=== PATIENT | male | born 1945 | race Caucasian/White ===

== ENCOUNTER → 2017-07-17 | Outpatient (CLI) | payer OTHER ==
[~2017-07-17] MED LIST: ASPIRIN81 M1 PO; BUSPIRONE HCL7.5 MG PO; CECLOR500 MG PO; CELEXA20 MG PO; CLEOCIN PO; COMBIVENT RESPIM4 GM INH; DAKIN'S3840 ML TOP; DARVOCET-N 1001 TAB PO; FLOMAX0.4 M1 PO; HYDROGESIC 5/501 CAP; LIPITOR PO; LOTENSIN20 MG PO; LOTREL 10/20 MG1 CAP PO; LOTREL 5/20 MG1 CAP PO; MULTI-DAY VITAM1 TAB PO; NORCO 10-325 TA1 TAB PO; PANTOPRAZOLE SO40 MG PO; PREDNISONE; PREDNISONE5 M1 DOB; PRILOSEC20 M1 PO; SKELAXIN PO; SLO-NIACIN500 MG PO; SYMBICORT INH; TESTONE CI200 MG/1 M IM; TOPROL XL PO; TOPROL XL50 MG PO; TRAZODONE PO; VICODIN 5/500 T1 TAB PO; VOLTAREN75 MG PO; WELLBUTRIN SR PO; ZITHROMAX1 G/PKT PO; ZOCOR PO
--- NOTE | ~2017-07-17 | US85 ---
[facility] A Service of [facility] & [facility] RADIOLOGY TEXT RESULTS PATIENT: RAFAELA JACOBS LOCATION: CNIV : 49 UNIT #: [id number] AGE: [address]: Cande Nguyen APRN SEX: M ORDER DR: [id number] [facility] [address] [place], [place] [address] [id number] O MR#: [id number] Acc #: [id number] NAME: RAFAELA JACOBS : 1945 SEX: M STUDY DATE/TIME: 07/17/2017 15:11 UNIT: CNIV ROOM: STUDY DESCRIPTION: [facility] Attending Physician: Cande Nguyen A.P.R.N. Referring Physician: Cande Nguyen A.P.R.N. Ordering Physician: Cande Nguyen A.P.R.N. Primary Care Physician: Joshua Rolle M.D. MEDICAL IMAGING REPORT This report is preliminary unless electronic signature is present EXAM Left lower extremity venous duplex, 07/17/2017 HISTORY Left lower extremity pain and edema, and redness in left calf beginning this morning, evaluate for deep vein thrombosis. TECHNIQUE Venous ultrasound examination of the left lower extremity was performed using grayscale, spectral Doppler and color flow Doppler imaging. FINDINGS The examination is negative. There is no evidence of left lower extremity deep venous thrombus from the groin to the lower calf. Visualized greater saphenous vein is also patent. IMPRESSION Negative examination. No evidence of left lower extremity deep venous thrombosis. Dictated by... Zach Brown M.D. THIS IS AN ELECTRONICALLY VERIFIED REPORT Zach Brown M.D. at 07/20/2017 7:34 AM PAIGE/renetta TD: 07/18/2017 12:28 JOB #: [id number] MEDICAL IMAGING REPORT Page 1 of 1 COPY
== END | disposition home or self-care (01) ==
LOC: CNIV 14:45
DX: M79.605 Pain in left leg (principal)
CPT/HCPCS: 93971